=== PATIENT | female | born 1985 | race Caucasian/White ===

== ENCOUNTER 2016-12-06 20:38 | Emergency (ER) | payer MEDICAID ==
[2016-12-06 20:49] VITALS: RESP 16; O2SAT 93
--- NOTE | 2016-12-06 21:03 | EDPHY ---
H & P Stated Complaint: fell hiking injured L ankle - Personal History LMP (Females 10-55): 22-28 Days Ago Current Tetanus/Diphtheria Vaccine: Yes - Medical/Surgical History Hx Asthma: No Hx Chronic Respiratory Disease: No Hx Diabetes: No Hx Cardiac Disease: No Hx Renal Disease: No Hx Cirrhosis: No Hx Alcoholism: No Hx HIV/AIDS: No Hx Splenectomy or Spleen Trauma: No Other PMH: PMHx: denies. PSHx: denies - Social History Smoking Status: Never smoked HPI/ROS: Chief complaint: Left ankle injury History of present illness: This is a 31-year-old female who presents to the emergency department for a left ankle injury. Patient fell and injured her ankle while hiking. There is moderate discomfort. Still able to ambulate but with difficulty. No open wounds, no abnormal coolness, no paresthesias reported. No other trauma. (Daniel Verma) - Physical Exam Exam: General appearance: Alert, nontoxic Musculoskeletal: Diffuse tenderness to the ankle and foot. No specific crepitus. No knee tenderness. She is moving it well. Vascular exam: Normal pulses and capillary refill in the foot Neurologic exam: The patient has normal sensation and motor function distal to the injury. Skin: No open wounds (Daniel Verma) Constitutional: Initial Vital Signs Temperature (C) 37 C 12/06/16 20:45 Heart Rate 87 12/06/16 20:45 Respiratory Rate 16 12/06/16 20:45 Blood Pressure 134/81 H 12/06/16 20:45 O2 Sat (%) 93 12/06/16 20:45 O2 Delivery Mode Room Air Allergies/Adverse Reactions: aspirin Allergy (Verified 12/06/16 20:45) Home Medications: Medication Instructions Recorded Sprintec 28 Day Tablet 12/06/16 Medical Decision Making ED Course/Re-evaluation: The patient was evaluated and managed by the physician asset protection assistant. I have reviewed this chart and I agree with the findings and plan of care as documented , as indicated by my signature. I am the secondary supervising physician. ( Daniella French) Departure - Departure Disposition: Home, Routine, Self-Care Clinical Impression: Ankle sprain Qualifiers: Encounter type: initial encounter Involved ligament of ankle: unspecified ligament Laterality: left Qualified Code(s): S93.402A - Sprain of unspecified ligament of left ankle, initial encounter Condition: Good Instructions: Ankle Sprain (ED) Additional Instructions: Follow-up with orthopedics a primary care doctor for recheck Rest the injury Ice the injury, 20 minutes on 3 times daily for the next 3 days Ibuprofen 600 mg 3 times a day for the next 1-2 days for pain and swelling If symptoms worsen or new symptoms develop return to the emergency room for recheck Referrals: NONE *PRIMARY CARE P,. [Primary Care Provider] - As per Instructions [facility],. [Clinic] - As per Instructions
[2016-12-06 22:26] VITALS: BP 128/74; PULSE 91; TEMP 98.8
== END 2016-12-06 22:25 | disposition home or self-care (01) ==
DX: S93.402A Sprain of unspecified ligament of left ankle, initial encounter (principal); W18.39XA Other fall on same level, initial encounter; Y99.8 Other external cause status; Y93.01 Activity, walking, marching and hiking
CPT/HCPCS: L4350